=== PATIENT | female | born 1980 | race American Indian/Alaskan Native ===

== ENCOUNTER 2018-02-20 10:01 | Emergency (ER) | payer OTHER ==
[2018-02-20 10:09] VITALS: RESP 18
--- NOTE | 2018-02-20 11:03 | ED PDOC ---
HPI: Abdomen Time Seen by Provider: 02/20/18 10:46 Chief Complaint (Nursing): Upper Extremity Problem/Injury Chief Complaint (Provider): UC Flare History Per: Patient History/Exam Limitations: no limitations Onset/Duration Of Symptoms: Days (two) Outside of [place] travel?: No Current Symptoms Are (Timing): Still Present Context: Other (current dx of ulcerative colitis; colonoscopy dated 02/11 and GI follow up on , 02-22) Severity: Moderate Pain Scale Rating Of: 4 Location Of Pain/Discomfort: Diffuse Quality Of Discomfort: Aching, Pressure, "Pain" Associated Symptoms: denies: Fever, Chills, Nausea, Vomiting, Diarrhea, Back Pain, Chest Pain, Constipation, Urinary Symptoms Last Bowel Movement: Yesterday Additional Complaint(s): Pt presents to the ED complaining of an ulcerative colitis flare which she is managing with APAP#3 from her GI specialist but has exhausted her prednisone and desires a day or two to hold her over until she sees her specialist on . Pt denies any other complaints and indicates that she is otherwise healthy. The patient is a well developed healthy female. Pt denies any other chronic or acute illnesses Past Medical History Reviewed: Historical Data, Nursing Documentation, Vital Signs Vital Signs: Last Vital Signs Temp 98.4 F 02/20/18 10:08 Pulse 82 02/20/18 10:08 Resp 18 02/20/18 10:08 BP 114/76 02/20/18 10:08 Pulse Ox 99 02/20/18 10:08 - Medical History Other PMH: Ulcerative Colitis - Family History Family History: States: Unknown Family Hx - Allergies Allergies/Adverse Reactions: Allergies Allergy/AdvReac Type Severity Reaction Status Date / Time Penicillins Allergy RASH Verified 02/20/18 10:19 Review of Systems ROS Statement: Except As Marked, All Systems Reviewed And Found Negative Gastrointestinal: Positive for: Abdominal Pain Physical Exam - Reviewed Nursing Documentation Reviewed: Yes Vital Signs Reviewed: Yes - Physical Exam Appears: Positive for: Well, Non-toxic, No Acute Distress, Uncomfortable. Negative for: In Acute Distress Skin: Positive for: Normal Color, Warm, Dry ENT: Positive for: Normal ENT Inspection Neck: Positive for: Normal, Painless ROM, Supple. Negative for: Decreased ROM Cardiovascular/Chest: Positive for: Regular Rate, Rhythm. Negative for: Chest Non Tender, Edema, Gallop, Murmur, Bradycardia, Tachycardia Respiratory: Positive for: Normal Breath Sounds. Negative for: Decreased Breath Sounds, Accessory Muscle Use, Crackles, Rales, Rhonchi, Stridor, Wheezing, Respiratory Distress, Plerual Rub Pulses-Carotid (L): 2+ Pulses-Carotid (R): 2+ Pulses-Radial (L): 2+ Pulses-Radial (R): 2+ Gastrointestinal/Abdominal: Positive for: Bowel Sounds (active in all four quadrants), Soft, Tenderness (non-point tenderness with upper left quadrant pain). Negative for: Distended, Guarding (no guarding, rebound tnderness; no tenderness at McBurney point, no positiv bello sign and no positive rovsing orn merckel sign), Rebound, Hernia, Asicites Back: Positive for: Normal Inspection. Negative for: L CVA Tenderness, R CVA Tenderness - ECG O2 Sat by Pulse Oximetry: 99 Medical Decision Making Medical Decision Making: decision to provide a IM injection of decadron and instructions to follow up with her specialist as scheduled. Pt provided results of her recent colonoscopy dated 12 incative and supportive of a dx of UC Pt is in no need of extended medical care and is stable medically for discharge and requires no further treatment, diagnostic or therapeutic at the [facility]. Disposition - Clinical Impression Clinical Impression: Ulcerative (chronic) enterocolitis - Patient ED Disposition Is Patient to be Admitted: No Doctor Will See Patient In The: Office Counseled Patient/Family Regarding: Studies Performed, Diagnosis, Need For Followup - Disposition Disposition: Routine/Home Disposition Time: 11:13 Condition: STABLE Additional Instructions: follow up as scheduled with your GI specialist Instructions: Ulcerative Colitis in Adults, Ulcerative Colitis (DC)
[2018-02-20 12:41] VITALS: BP 116/60; PULSE 70; TEMP 98; O2SAT 98
== END 2018-02-20 12:39 | disposition home or self-care (01) ==
LOC: H.ER 10:01
DX: K51.00 Ulcerative (chronic) pancolitis without complications (principal); Z88.0 Allergy status to penicillin
CPT/HCPCS: 96372; 99283; J1100